=== PATIENT | male | born 1970 | race Two or more races ===

== ENCOUNTER 2023-03-19 14:42 | Inpatient (IN) | payer MEDICAID, OTHER ==
[~2023-03-19] VITALS: Ht 175.3 cm; Wt 81.6 kg
[~2023-03-19 14:42] MED LIST: DIVA500T53 PO; HALO50AM2 IM; LITH300C3 PO; PALI9TAB PO; PANT-31 PO; POTA8CAP20 PO
[2023-03-19] MEDS ORDERED: DiphenhydrAMINE HCL 50 MG/ML VIAL IM ONE (15:30)
[2023-03-19] MEDS ORDERED: HALOPERIDOL LACTATE 5 MG/ML VIAL IM ONE (15:30)
[2023-03-19] MEDS ORDERED: LORazepam 2 MG/ML VIAL IM ONE (15:30)
[2023-03-19 18:58] LABS: COVID AG,FIA SOURCE NASAL SWAB
[2023-03-19 18:59] LABS: APPEARANCE,URINE CLEAR (CLEAR); BILIRUBIN,URINE NEGATIVE (NEGATIVE); GLUCOSE, URINE (UA) TRACE mg/dL (NEGATIVE); KETONES,URINE NEGATIVE (NEGATIVE); LEUKOCYTE ESTERASE ,URINE NEGATIVE (NEGATIVE); NITRATE,URINE NEGATIVE (NEGATIVE); OCCULT BLOOD,URINE NEGATIVE (NEGATIVE); PH,URINE 5.5 (5.0-8.0); PROTEIN,URINE NEGATIVE (NEGATIVE); SPECIFIC GRAVITIY, URINE 1.012 (1.003-1.030); UROBILINOGEN,URINE <=1.0 mg/dL (<=1.0)
[2023-03-19 19:09] LABS: AMPHET/METH SCREEN,URINE NEGATIVE (NEGATIVE); BACTERIA,URINE None Seen /HPF (None Seen); BARBITURATE SCREEN, URINE NEGATIVE (NEGATIVE); BENZODIAZEPINES SCREEN,URINE NEGATIVE (NEGATIVE); CANNABINOID SCREEN,URINE NEGATIVE (NEGATIVE); COCAINE SCREEN,URINE NEGATIVE (NEGATIVE); METHADONE SCREEN, URINE NEGATIVE (NEGATIVE); OPIATE SCREEN,URINE NEGATIVE (NEGATIVE); PHENCYCLIDINE SCREEN,URINE NEGATIVE (NEGATIVE); RBC,URINE None Seen /HPF (0-2); SQUAMOUS EPITHELIAL CELL,UR None Seen /LPF (None Seen); WBC,URINE None Seen /HPF (0-5)
[2023-03-19] MEDS ORDERED: MIDAZOLAM HCL 5 MG/ML VIAL IM ONE (20:30)
[2023-03-19 21:26] LABS: ANION GAP 13 mmol/L (8-16); CARBON DIOXIDE 23 mmol/L (22-29); CHLORIDE 102 mmol/L (98-107); CREATININE 1.13 mg/dL (0.60-1.30); GLOMERULAR FILTR. RATE CALC > 60 mL/min (>60); GLUCOSE,RANDOM 192 mg/dL (70-110); POTASSIUM 3.7 mmol/L (3.5-5.1); SODIUM SERUM 138 mmol/L (136-145)
[2023-03-19 21:28] LABS: BASOPHILS % (AUTO) 0.5 % (0.0-2.0); EOSINOPHILS % (AUTO) 0.7 % (1.0-6.0); HEMATOCRIT 42.9 % (41-53); LYMPHOCYTES # (AUTO) 1.9 K/uL (1.0-4.8); LYMPHOCYTES % (AUTO) 17.3 % (22.0-44.0); MEAN CORPUSCULAR HGB CONC 32.6 G/dL (31.0-37.0); MEAN CORPUSCULAR VOLUME 92 fL (80-100); MONOCYTES # (AUTO) 0.6 K/uL (0.1-1.0); MONOCYTES % (AUTO) 5.6 % (2.0-9.0); NEUTROPHILS # (AUTO) 8.4 K/uL (1.8-7.7); NEUTROPHILS % (AUTO) 75.9 % (40.0-70.0); PLATELET COUNT (AUTO) 362 K/uL (150-450); RED BLOOD CELL COUNT(AUTO) 4.67 MIL/uL (4.50-5.90); RED CELL DISTRIBUTION WIDTH 14.2 % (11.5-14.5)
[2023-03-19 21:33] LABS: ALANINE AMINOTRANSFERASE 44 U/L (12-78); ALBUMIN 3.5 g/dL (3.4-5.0); ALKALINE PHOSPHATASE 115 U/L (46-116); ASPARTATE AMINOTRANSFERASE 36 U/L (15-37); BILIRUBIN,TOTAL 0.2 mg/dL (0.1-1.0); TOTAL PROTEIN, SERUM 7.6 g/dL (6.4-8.2)
[2023-03-19] MEDS ORDERED: ChlorproMAZINE HCL 50 MG/2 ML AMP IM ONE (23:00)
[2023-03-20 08:38] VITALS: RESP 18
[2023-03-20] MEDS ORDERED: DOCUSATE SODIUM 100 MG CAPSULE PO PRN (12:15)
[2023-03-20] MEDS ORDERED: CloNIDine HCL 0.1 MG TABLET PO PRN (12:15)
[2023-03-20] MEDS ORDERED: IBUPROFEN 400 MG TABLET PO PRN (12:15)
[2023-03-20] MEDS ORDERED: PETROLATUM,WHITE 28 GM JELLY TP PRN (12:15)
[2023-03-20] MEDS ORDERED: GuaiFENesin/D-METHORPHAN [SUGAR-FREE] 200-20MG/10 ML SYRUP UDCUP PO PRN (12:15)
[2023-03-20] MEDS ORDERED: ACETAMINOPHEN 325 MG TABLET PO PRN (12:15)
[2023-03-20] MEDS ORDERED: ALBUTEROL SULFATE HFA 90 MCG/PUFF 8 GM INHALER IH PRN (12:15)
[2023-03-20] MEDS ORDERED: MAGNESIUM HYDROXIDE SUSPENSION 30 ML UDCUP PO PRN (12:15)
[2023-03-20] MEDS ORDERED: NICOTINE 14 MG/24 HOUR PATCH TD PRN (12:15)
[2023-03-20] MEDS ORDERED: ONDANSETRON HCL 4 MG TABLET PO PRN (12:15)
[2023-03-20] MEDS ORDERED: MAG HYDROX/AL HYDROX/SIMETH ES 30 ML SUSPENSION UDCUP PO PRN (12:15)
[2023-03-20] MEDS ORDERED: LOPERAMIDE HCL 2 MG CAPSULE PO PRN (12:15)
[2023-03-20] MEDS: ARIPiprazole 10 MG TABLET PO SCH (17:30)
[2023-03-20] MEDS ORDERED: DiphenhydrAMINE HCL 50 MG/ML VIAL IM ONE (18:00)
[2023-03-20] MEDS ORDERED: LORazepam 2 MG/ML VIAL IM ONE (18:00)
[2023-03-20] MEDS ORDERED: HALOPERIDOL LACTATE 5 MG/ML VIAL IM ONE (18:00)
[2023-03-20] MEDS ORDERED: HALOPERIDOL LACTATE 5 MG/ML VIAL ONE (18:05)
[2023-03-20] MEDS ORDERED: LORazepam 2 MG/ML VIAL ONE (18:05)
[2023-03-20] MEDS ORDERED: DiphenhydrAMINE HCL 50 MG/ML VIAL ONE (18:05)
[2023-03-20 19:40] VITALS: RESP 18
[2023-03-20] MEDS: DIVALPROEX SODIUM 500 MG DR TABLET PO SCH (20:30)
[2023-03-20 21:35] VITALS: RESP 18
[2023-03-21] MEDS: ZOLPIDEM TARTRATE 10 MG TABLET PO PRN ×2 (02:53→20:54)
[2023-03-21] MEDS: LORazepam 2 MG TABLET PO PRN ×2 (02:53→20:54)
[2023-03-21] MEDS: DIVALPROEX SODIUM 500 MG DR TABLET PO SCH ×2 (08:30→16:56)
[2023-03-21] MEDS: PANTOPRAZOLE SODIUM 40 MG DR TABLET PO SCH (08:30)
[2023-03-21] MEDS: ARIPiprazole 10 MG TABLET PO SCH (08:30)
[2023-03-21 08:34] VITALS: BP 138/85; PULSE 109; RESP 18; TEMP 97.8; O2SAT 98
[2023-03-21 20:33] VITALS: RESP 18
[2023-03-21] MEDS: HALOPERIDOL 5 MG TABLET PO PRN (22:32)
[2023-03-22] MEDS: PANTOPRAZOLE SODIUM 40 MG DR TABLET PO SCH (08:05)
[2023-03-22] MEDS: ARIPiprazole 10 MG TABLET PO SCH (08:05)
[2023-03-22] MEDS: DIVALPROEX SODIUM 500 MG DR TABLET PO SCH ×2 (08:05→16:21)
[2023-03-22] MEDS: LORazepam 2 MG TABLET PO PRN ×2 (08:06→19:30)
[2023-03-22 08:27] VITALS: BP 129/91; PULSE 108; RESP 18; TEMP 98.5; O2SAT 97
[2023-03-22] MEDS ORDERED: HALOPERIDOL DECANOATE 50 MG/ML VIAL IM SCH (10:45)
[2023-03-22] MEDS: HALOPERIDOL 5 MG TABLET PO PRN (19:30)
[2023-03-22 20:11] VITALS: BP 110/76; PULSE 97; RESP 18; TEMP 98.1; O2SAT 97
[2023-03-22] MEDS: ZOLPIDEM TARTRATE 10 MG TABLET PO PRN (20:59)
[2023-03-23 08:05] VITALS: BP 110/73; PULSE 87; RESP 18; TEMP 97.6; O2SAT 98
[2023-03-23] MEDS: LORazepam 2 MG TABLET PO PRN ×2 (08:18→19:50)
[2023-03-23] MEDS: ARIPiprazole 15 MG TABLET PO SCH (08:18)
[2023-03-23] MEDS: DIVALPROEX SODIUM 500 MG DR TABLET PO SCH ×2 (08:19→16:21)
[2023-03-23] MEDS: PANTOPRAZOLE SODIUM 40 MG DR TABLET PO SCH (08:19)
[2023-03-23] MEDS: HALOPERIDOL 5 MG TABLET PO PRN (19:50)
[2023-03-23 20:48] VITALS: BP 109/71; PULSE 77; RESP 18; TEMP 98.1; O2SAT 97
[2023-03-23] MEDS: ZOLPIDEM TARTRATE 10 MG TABLET PO PRN (21:26)
[2023-03-24] MEDS: DIVALPROEX SODIUM 500 MG DR TABLET PO SCH ×2 (08:20→16:44)
[2023-03-24] MEDS: HALOPERIDOL 5 MG TABLET PO PRN (08:20)
[2023-03-24] MEDS: ARIPiprazole 15 MG TABLET PO SCH (08:20)
[2023-03-24] MEDS: PANTOPRAZOLE SODIUM 40 MG DR TABLET PO SCH (08:20)
[2023-03-24 08:30] VITALS: RESP 18; TEMP 97.9
[2023-03-24] MEDS: LORazepam 2 MG TABLET PO PRN (16:44)
[2023-03-24 21:30] VITALS: RESP 18
[2023-03-25] MEDS: LORazepam 2 MG TABLET PO PRN ×2 (01:56→21:13)
[2023-03-25] MEDS: ZOLPIDEM TARTRATE 10 MG TABLET PO PRN ×2 (01:56→21:45)
[2023-03-25] MEDS: HALOPERIDOL 5 MG TABLET PO PRN ×2 (02:58→21:13)
[2023-03-25 08:51] VITALS: RESP 18
[2023-03-25] MEDS: ARIPiprazole 15 MG TABLET PO SCH ×2 (09:00→10:20)
[2023-03-25] MEDS: DIVALPROEX SODIUM 500 MG DR TABLET PO SCH ×3 (09:00→16:47)
[2023-03-25] MEDS: PANTOPRAZOLE SODIUM 40 MG DR TABLET PO SCH ×2 (09:00→10:20)
[2023-03-25 20:13] VITALS: BP 115/80; PULSE 96; RESP 18; TEMP 98.1
[2023-03-26 08:10] VITALS: RESP 18
[2023-03-26] MEDS: DIVALPROEX SODIUM 500 MG DR TABLET PO SCH ×2 (08:46→16:54)
[2023-03-26] MEDS: LORazepam 2 MG TABLET PO PRN (08:46)
[2023-03-26] MEDS: PANTOPRAZOLE SODIUM 40 MG DR TABLET PO SCH (08:46)
[2023-03-26] MEDS: ARIPiprazole 15 MG TABLET PO SCH (08:46)
[2023-03-26 22:44] VITALS: RESP 18
[2023-03-27] MEDS: ZOLPIDEM TARTRATE 10 MG TABLET PO PRN ×2 (01:28→21:13)
[2023-03-27] MEDS: LORazepam 2 MG TABLET PO PRN ×3 (01:28→21:13)
[2023-03-27] MEDS: ARIPiprazole 15 MG TABLET PO SCH (08:16)
[2023-03-27] MEDS: DIVALPROEX SODIUM 500 MG DR TABLET PO SCH ×2 (08:16→16:19)
[2023-03-27] MEDS: PANTOPRAZOLE SODIUM 40 MG DR TABLET PO SCH (08:16)
[2023-03-27] MEDS: HALOPERIDOL 5 MG TABLET PO PRN (08:17)
[2023-03-27 11:01] VITALS: BP_SYST 113; BP_DIAS 121; BP_DIAS 70; PULSE 80; RESP 17; TEMP 97.1; O2SAT 98
[2023-03-27 20:24] VITALS: BP 116/73; PULSE 99; RESP 18; TEMP 97.3; O2SAT 98
[2023-03-28] MEDS: PANTOPRAZOLE SODIUM 40 MG DR TABLET PO SCH (08:13)
[2023-03-28] MEDS: LORazepam 2 MG TABLET PO PRN ×2 (08:13→13:18)
[2023-03-28] MEDS: DIVALPROEX SODIUM 500 MG DR TABLET PO SCH ×2 (08:13→18:01)
[2023-03-28] MEDS: HALOPERIDOL 5 MG TABLET PO PRN ×2 (08:13→13:18)
[2023-03-28] MEDS: ARIPiprazole 15 MG TABLET PO SCH (08:13)
[2023-03-28 09:08] VITALS: BP 138/92; PULSE 110; RESP 18; TEMP 97.8; O2SAT 98
[2023-03-28 21:18] VITALS: BP 130/80; PULSE 82; RESP 18; TEMP 98.1; O2SAT 97
[2023-03-29] MEDS: LORazepam 2 MG TABLET PO PRN ×3 (03:45→21:04)
[2023-03-29] MEDS: HALOPERIDOL 5 MG TABLET PO PRN ×2 (03:45→21:04)
[2023-03-29 06:03] LABS: HEMOGLOBIN A1C 6.3 % (3.8-5.6)
[2023-03-29 06:12] LABS: CHOL/HDL RATIO 5.1 (4.2-7.3)
[2023-03-29 06:17] LABS: ALANINE AMINOTRANSFERASE 39 U/L (12-78); ALBUMIN 3.2 g/dL (3.4-5.0); ALKALINE PHOSPHATASE 105 U/L (46-116); ANION GAP 9 mmol/L (8-16); ASPARTATE AMINOTRANSFERASE 23 U/L (15-37); BILIRUBIN,TOTAL 0.3 mg/dL (0.1-1.0); CALCIUM, TOTAL 9.2 mg/dL (8.8-10.5); CARBON DIOXIDE 27 mmol/L (22-29); CHLORIDE 102 mmol/L (98-107); CREATININE 1.04 mg/dL (0.60-1.30); GLOMERULAR FILTR. RATE CALC > 60 mL/min (>60); GLUCOSE,RANDOM 112 mg/dL (70-110); SODIUM SERUM 138 mmol/L (136-145); TOTAL PROTEIN, SERUM 6.8 g/dL (6.4-8.2)
[2023-03-29] MEDS: PANTOPRAZOLE SODIUM 40 MG DR TABLET PO SCH (08:43)
[2023-03-29] MEDS: ARIPiprazole 15 MG TABLET PO SCH (08:43)
[2023-03-29] MEDS: DIVALPROEX SODIUM 500 MG DR TABLET PO SCH ×2 (08:43→16:47)
[2023-03-29 08:49] VITALS: BP 125/93; PULSE 99; RESP 18; TEMP 97.5; O2SAT 98
[2023-03-29 22:05] VITALS: BP 139/99; PULSE 89; RESP 20; TEMP 97; O2SAT 100
[2023-03-30] MEDS: ARIPiprazole 15 MG TABLET PO SCH (08:13)
[2023-03-30] MEDS: DIVALPROEX SODIUM 500 MG DR TABLET PO SCH ×2 (08:13→17:52)
[2023-03-30] MEDS: PANTOPRAZOLE SODIUM 40 MG DR TABLET PO SCH (08:14)
[2023-03-30 08:16] VITALS: BP 130/89; PULSE 86; RESP 18; TEMP 97.7; O2SAT 98
[2023-03-30] MEDS: LORazepam 2 MG TABLET PO PRN ×2 (09:13→17:52)
[2023-03-30] MEDS: HALOPERIDOL 5 MG TABLET PO PRN ×2 (09:13→17:52)
[2023-03-30 20:47] VITALS: BP 132/78; PULSE 82; RESP 18; TEMP 98.1; O2SAT 97
[2023-03-31] MEDS: LORazepam 2 MG TABLET PO PRN ×3 (03:47→22:54)
[2023-03-31 08:40] VITALS: BP 131/94; PULSE 88; RESP 18; TEMP 97.8; O2SAT 97
[2023-03-31] MEDS: HALOPERIDOL 5 MG TABLET PO PRN ×2 (08:52→22:54)
[2023-03-31] MEDS: DIVALPROEX SODIUM 500 MG DR TABLET PO SCH ×2 (08:52→16:24)
[2023-03-31] MEDS: PANTOPRAZOLE SODIUM 40 MG DR TABLET PO SCH (08:52)
[2023-03-31] MEDS: ARIPiprazole 15 MG TABLET PO SCH (08:52)
[2023-03-31 20:56] VITALS: BP 128/84; PULSE 84; RESP 18; TEMP 97.6
[2023-04-01] MEDS: PANTOPRAZOLE SODIUM 40 MG DR TABLET PO SCH (07:53)
[2023-04-01] MEDS: ARIPiprazole 15 MG TABLET PO SCH (07:53)
[2023-04-01] MEDS: DIVALPROEX SODIUM 500 MG DR TABLET PO SCH (07:53)
[2023-04-01] MEDS: HALOPERIDOL 5 MG TABLET PO PRN (07:53)
[2023-04-01] MEDS ORDERED: DIVA-112 PO (11:34)
[2023-04-01] MEDS ORDERED: HALO50VI29 IM (11:34)
[2023-04-01] MEDS ORDERED: ARIP15TA27 PO (11:34)
== END 2023-04-01 16:51 | disposition home or self-care (01) | DRG 750 ==
LOC: EMS 14:42 → 3EC 03-20 02:09
PROVIDERS: ADMIT Psychiatry & Neurology Child & Adolescent Psychiatry; ATTEND Psychiatry & Neurology Child & Adolescent Psychiatry
DX: F25.1 Schizoaffective disorder, depressive type (principal); R45.851 Suicidal ideations; T18.9XXA Foreign body of alimentary tract, part unspecified, initial encounter; F31.9 Bipolar disorder, unspecified; Z20.822 Contact with and (suspected) exposure to COVID-19; K21.9 Gastro-esophageal reflux disease without esophagitis; D72.829 Elevated white blood cell count, unspecified; R73.9 Hyperglycemia, unspecified; Z79.899 Other long term (current) drug therapy
CPT/HCPCS: 74019; 80053; 80061; 80307; 81001; 83036; 85025; 99291; G0480; J1200; J1630; J1631; J2060; J2250; J3230